=== PATIENT | female | born 1955 | race Caucasian/White ===

== ENCOUNTER 2016-11-14 07:36 | Day surgery (SDC) | payer MEDICARE, OTHER ==
[~2016-11-14] VITALS: Ht 162.6 cm; Wt 72.3 kg
[2016-11-14] VITALS (7 sets, daily range): BP systolic 96–126; BP diastolic 63–94; PULSE 84–96; RESP 16–20; TEMP 97.9–98; O2SAT 92–94
[2016-11-14] MEDS ORDERED: IOHEXOL 350 MG/ML 100 ML BTL (for RAD DIAG) IVCONTRAST ONE (07:37)
[2016-11-14] MEDS ORDERED: LINA290C PO (08:24)
[2016-11-14] MEDS ORDERED: METF750T PO (08:24)
[2016-11-14] MEDS ORDERED: INDA1CAP2 PO (08:24)
[2016-11-14] MEDS ORDERED: LORA1TAB12 PO (08:24)
[2016-11-14] MEDS ORDERED: GLYC1AER PO (08:24)
[2016-11-14] MEDS ORDERED: CYCL5TAB PO (08:24)
[2016-11-14] MEDS ORDERED: POTASSIUM PO (08:24)
[2016-11-14] MEDS ORDERED: FURO20TA PO (08:24)
[2016-11-14] MEDS ORDERED: ASPI81CH37 CHEW (08:24)
[2016-11-14] MEDS ORDERED: METH5TAB4 PO (08:24)
[2016-11-14] MEDS ORDERED: FORT600S SQ (08:24)
[2016-11-14] MEDS ORDERED: MAGN400T2 PO (08:24)
[2016-11-14] MEDS ORDERED: BUPR100T4 PO (08:24)
[2016-11-14] MEDS ORDERED: DULO1CAP2 PO (08:24)
[2016-11-14] MEDS ORDERED: BACL10TA PO (08:24)
[2016-11-14] MEDS ORDERED: [UNRECOGNIZED DRUG - CODE] IV (08:28)
[2016-11-14] MEDS ORDERED: VITA250T25 PO (08:28)
[2016-11-14] MEDS ORDERED: VICT18IN SQ (08:28)
[2016-11-14 08:34] LABS: AUTOMATED NEUTROPHIL # 3.3 TH/MM3 (1.8-7.7); BASOPHIL % 0.6 % (0.0-2.0); EOSINOPHIL # 0.1 TH/MM3 (0-0.4); EOSINOPHIL % 1.6 % (0.0-4.0); HEMATOCRIT 41.3 % (35.0-46.0); HEMO FLAGS DIFF FINAL; LYMPH % 39.6 % (9.0-44.0); LYMPHOCYTE # 2.7 TH/MM3 (1.0-4.8); MEAN CELL VOLUME 87.8 FL (80.0-100.0); MEAN CORPUSCULAR HEMOGLOBIN 29.5 PG (27.0-34.0); MEAN CORPUSCULAR HGB CONC 33.6 % (32.0-36.0); MONO % 8.6 % (0.0-8.0); NEUT % 49.6 % (16.0-70.0); PLATELET COUNT 210 TH/MM3 (150-450); RED BLOOD COUNT 4.71 MIL/MM3 (4.00-5.30); RED CELL DISTRIBUTION WIDTH 14.6 % (11.6-17.2); WHITE BLOOD COUNT 6.7 TH/MM3 (4.0-11.0)
[2016-11-14 08:43] LABS: APTT (PATIENT) 23.3 SEC (24.3-30.1); INTERNATIONAL NORMALIZED RATIO 0.9 RATIO; PROTHROMBIN TIME - PATIENT 9.9 SEC (9.8-11.6)
[2016-11-14 08:46] LABS: BICARBONATE 24.3 MEQ/L (21.0-32.0); POTASSIUM 3.8 MEQ/L (3.5-5.1)
[2016-11-14] MEDS ORDERED: SODIUM CHLOR 0.9% 1000 ML INJ 1,000 ML IV SCH (09:00)
[2016-11-14] MEDS ORDERED: MIDAZOLAM HCL 2 MG/2 ML VIAL ONE ×2 (09:42→10:08)
--- NOTE | 2016-11-14 10:35 | PD.RAD ---
Post Procedure Progress Note Pre Procedure Diagnosis: (1) Intermittent lower extremity swelling, Bilateral (2) History of Iliac vein stents Post Procedure Diagnosis: (1) History of Iliac vein stents (2) Intermittent lower extremity swelling, Bilateral Procedure Date: Nov 14, 2016 Supervising Radiologist: Amadeo Cardona Proceduralist/Assist: Jian Soto, RT(R), Annmarie Bravo, RT(R) Anesthesia: Local, Analgesia, Conscious Sedation Plan of Activity Patient to Unit: ROPU Patient Condition: Good See PACS Report for procedural detail/treatment Vascular-Venous Procedure Procedure 1 Procedure Site: Bilateral Leg Access Access Site(s): Right Popliteal Vein, Left Popliteal Vein Findings: Extensive stenting of entire iliac venous system bilaterally. Deep venous system and the iliac stents are widely patent Amadeo Cardona MD Nov 14, 2016 10:35
--- NOTE | 2016-11-14 11:22 | RADRPT ---
EXAM DATE/TIME: 11/14/2016 09:48 [facility] COMPARISON: No previous studies available for comparison. INDICATIONS : Patient presents with venous insufficiency. MEDICAL HISTORY : COPD. GERD. Hyperlipidemia. Rheumatoid arthritis. Restless leg syndrome. Irritable bowel. Osteoporosis. Hyperthyroid/ Graves disease. Sleep apnea. Venous insufficiency. Diabetes melitus. SURGICAL HISTORY : Stent bilateral iliac. Bilateral GSV ablation. Cholecystectomy. Hysterectomy. Tonsillectomy. Bladder surgery. Wrist surgery. Right hip replacement. ENCOUNTER: Initial ACUITY: 1 year PAIN SCORE: 5/10 LOCATION: Bilateral lower extremity FLUORO TIME: 1.9 minutes IMAGE SERIES: 7 ACCESS SITE: Bilateral Popliteal vein CONTRAST: 50 cc Omnipaque (iohexol) 350 MEDICATION(S): 1.) 4 mg midazolam (Versed) IV 2.) 100 mcg fentanyl (Sublimaze) IV PROCEDURE : 1. Ultrasound-guided right venipuncture. 2. Ultrasound-guided left venipuncture. 3. Bilateral venogram. The risks, benefits and alternatives to the procedure were explained and verbal and written consent w as obtained. The site was prepped in sterile fashion. Full sterile technique was used, including ca p, mask, sterile gloves and gown and a large sterile sheet. Hand hygiene and 2% chlorhexidine and/or betadine/alcohol prep was utilized per protocol for cutaneous antisepsis. Sterile gel and sterile p robe cover were utilized for ultrasound guidance. The skin and subcutaneous tissues were infiltrated with local anesthetic solution. With ultrasound guidance the selected vein on the right was punctured and positive contrast was injec jaja to demonstrate the venous anatomy from the distal calf to the inguinal ligament. Extensive stenting throughout the right iliac venous system. However, the entire deep venous system i s widely patent with some minimal intimal hyperplasia in the stent lumen. With ultrasound guidance the selected vein on the left was punctured and positive contrast was inject ed to demonstrate the venous anatomy from the distal calf to the inguinal ligament. Extensive stenting throughout the left iliac venous system. However, the entire deep venous system is widely patent with some minimal intimal hyperplasia in the stent lumen. CONCLUSION: 1. Uncomplicated bilateral lower extremity venography as above. 2. The entire iliac venous systems are stented bilaterally. Minimal intimal hyperplasia in both stent s with no luminal restriction. 3. The deep venous system from the popliteal centrally through the iliac is widely patent Amadeo Cardona MD on November 14, 2016 at 11:16 Board Certified Radiologist. This report was verified electronically.
[2016-11-18] MEDS ORDERED: POTA99TA4 PO (10:53)
== END 2016-11-14 13:00 | disposition home or self-care (01) ==
LOC: HROP 07:36 → HRIP 07:37 → HROP 13:00
PROVIDERS: ATTEND Surgery Vascular Surgery
DX: I87.2 Venous insufficiency (chronic) (peripheral) (principal); I10 Essential (primary) hypertension; E78.5 Hyperlipidemia, unspecified; E11.9 Type 2 diabetes mellitus without complications; E05.00 Thyrotoxicosis with diffuse goiter without thyrotoxic crisis or storm; J44.9 Chronic obstructive pulmonary disease, unspecified; K21.9 Gastro-esophageal reflux disease without esophagitis; M06.9 Rheumatoid arthritis, unspecified; G25.81 Restless legs syndrome; M81.0 Age-related osteoporosis without current pathological fracture; K58.9 Irritable bowel syndrome, unspecified; G47.30 Sleep apnea, unspecified; Z79.84 Long term (current) use of oral hypoglycemic drugs; Z79.82 Long term (current) use of aspirin; Z79.51 Long term (current) use of inhaled steroids; Z79.899 Other long term (current) drug therapy
CPT/HCPCS: 36005; 75822; 76937; 80048; 85025; 85610; 85730; 99152; C1769; C1887; C1894; J2250; J3010; J7030; Q9967